=== PATIENT | female | born 1965 | race African-American/Black ===

== ENCOUNTER → 2017-10-30 | Day surgery (SDC) | payer OTHER ==
--- NOTE | 2017-11-03 13:30 | PATH ---
Surgical Pathology Report Patient Name: NING JIMENEZ [facility]. Rec. #: [id number] /Age/Gender: 1965 (Age: 52) / F Account: [id number] Location: [facility] Taken: 10/30/2017 Received: 10/30/2017 Reported: 11/03/2017 Physicians: Katya Garcia M.D. Specimen(s) Received A: RIGHT BREAST SPECIMEN WITH CALCIFICATIONS B: RIGHT BREAST SPECIMEN WITHOUT CALCIFICATIONS Clinical History Mammographic findings: suspicious calcification Final Diagnosis A. BREAST, RIGHT, WITH CALCIFICATIONS, STEREOTACTIC BIOPSY: BENIGN BREAST TISSUE SHOWING SCLEROSED FIBROADENOMA WITH ASSOCIATED STROMAL CALCIFICATION. B. BREAST, RIGHT, WITHOUT CALCIFICATIONS, STEREOTACTIC BIOPSY: BENIGN BREAST TISSUE SHOWING FIBROADENOMA, SCLEROSING ADENOSIS AND MILD USUAL DUCTAL HYPERPLASIA (UDH). Electronically Signed Valeria Campos M.D. Gross Description A. Received in formalin labeled "right breast specimen-with calcification" are 2 cores armenta to yellow cylindrical portions of fibroadipose tissue measuring up to 1.6 cm in length and averaging 0.2 cm in diameter. The specimen is entirely submitted in 2 cassettes. B. Received in formalin labeled "right breast specimen-without calcification" are 7 cores armenta to yellow cylindrical portions of fibroadipose tissue ranging from 0.5cm to 1.5 cm in length and averaging 0.2 cm in diameter. The specimen is entirely submitted in 2 cassettes. Time to formalin fixation: 5 minutes Total formalin fixation time: 9 hours. PEMA/10/31/2017 idris/10/31/2017
== END | disposition home or self-care (01) ==
LOC: FMAMMOTONE 10:42
PROVIDERS: ATTEND Internal Medicine
PROC: 0HBT3ZX Excision of Right Breast, Percutaneous Approach, Diagnostic (ICD-10-PCS; principal; 2017-10-30)
DX: D24.1 Benign neoplasm of right breast (principal); N60.81 Other benign mammary dysplasias of right breast; N64.89 Other specified disorders of breast; R92.1 Mammographic calcification found on diagnostic imaging of breast
CPT/HCPCS: 19081; 88305-TC